=== PATIENT | female | born 1980 | race Caucasian/White ===

== ENCOUNTER 2023-03-10 12:53 | Day surgery (SDC) | payer SELFPAY ==
[2023-03-10] MEDS ORDERED: Bupivacaine HCl 0.5%/Epinephrine 1:200,000/PF 30 ml Vial ONE (15:32)
[2023-03-10] MEDS ORDERED: Promethazine HCl 25 MG/ML VIAL ONE (15:37)
[2023-03-10] MEDS ORDERED: fentaNYL 50 mcg/mL 1 mL Vial ONE ×2 (15:37→18:03)
[2023-03-10] MEDS ORDERED: Famotidine/PF 20 mg/2ml Vial ONE (15:37)
[2023-03-10] MEDS ORDERED: Lidocaine 1% PF 5 ML VIAL ONE (15:51)
[2023-03-10] MEDS ORDERED: PROPOFOL 200 MG/20 ML VIAL ONE (15:51)
[2023-03-10] MEDS ORDERED: Metoclopramide HCl 10 MG/2 ML VIAL ONE (15:51)
[2023-03-10] MEDS ORDERED: Dexamethasone 20 MG/5 ML VIAL ONE (15:51)
[2023-03-10] MEDS ORDERED: Ondansetron PF 4 MG/2 ML Vial ONE (15:51)
[2023-03-10] MEDS ORDERED: Tranexamic Acid 1,000 MG/10 ML VIAL ONE (16:09)
[2023-03-10] MEDS ORDERED: Meperidine HCl/PF 25 MG/ML VIAL ONE (17:47)
== END 2023-03-10 18:50 | disposition home or self-care (01) ==
LOC: SDC 12:53
PROVIDERS: ATTEND Plastic Surgery
PROC: 0H9T0ZZ Drainage of Right Breast, Open Approach (ICD-10-PCS; principal; 2023-03-10)
DX: L76.32 Postprocedural hematoma of skin and subcutaneous tissue following other procedure (principal)
CPT/HCPCS: J1100; J2175; J2405; J2550; J2704; J2765; J3010; S0028